=== PATIENT | male | born 1995 | race Caucasian/White ===

== ENCOUNTER 2018-04-26 05:36 | Emergency (ER) | payer BC, OTHER ==
[~2018-04-26] VITALS: Ht 188 cm; Wt 77.1 kg
[2018-04-26 05:40] VITALS: BP 147/73
== END 2018-04-26 06:05 | disposition left against medical advice (07) ==
LOC: ER 05:36
DX: R07.89 Other chest pain (principal); Z53.21 Procedure and treatment not carried out due to patient leaving prior to being seen by health care provider; V49.69XA Unspecified car occupant injured in collision with other motor vehicles in traffic accident, initial encounter; Y93.89 Activity, other specified; Y99.8 Other external cause status; Y92.410 Unspecified street and highway as the place of occurrence of the external cause

== ENCOUNTER 2018-04-26 09:40 | Emergency (ER) | payer BC ==
[~2018-04-26] VITALS: Ht 193 cm; Wt 92.5 kg
[2018-04-26] MEDS ORDERED: IOHEXOL 300 MG/ML 100ML BOTTLE IJ ONE (10:05)
[2018-04-26 10:15] VITALS: BP 133/75
== END 2018-04-26 12:51 | disposition home or self-care (01) ==
LOC: ER 09:40
DX: S46.912A Strain of unspecified muscle, fascia and tendon at shoulder and upper arm level, left arm, initial encounter (principal); R51 Headache; R07.89 Other chest pain; Z88.0 Allergy status to penicillin; V49.09XA Driver injured in collision with other motor vehicles in nontraffic accident, initial encounter; Y93.89 Activity, other specified; Y99.8 Other external cause status; Y92.410 Unspecified street and highway as the place of occurrence of the external cause
CPT/HCPCS: 70450; 71260; 74177; 99284; Q9967